=== PATIENT | female | born 1960 | race African-American/Black ===

== ENCOUNTER 2018-12-13 08:31 | Emergency (ER) | payer OTHER ==
[~2018-12-13] VITALS: Ht 177.8 cm; Wt 94.8 kg
[~2018-12-13 08:31] MED LIST: FLEXERIL PO; NORCO 7.5-3251 EACH PO
[2018-12-13] MEDS ORDERED: NORCO 5-325 TA1 EACH PO (09:54)
[2018-12-13 09:58] VITALS: BP 123/79
== END 2018-12-13 09:59 | disposition home or self-care (01) ==
LOC: ER 08:31
DX: S62.101A Fracture of unspecified carpal bone, right wrist, initial encounter for closed fracture (principal); S63.91XA Sprain of unspecified part of right wrist and hand, initial encounter; M54.9 Dorsalgia, unspecified; G89.29 Other chronic pain; D64.9 Anemia, unspecified; W19.XXXA Unspecified fall, initial encounter; Y93.01 Activity, walking, marching and hiking; Y92.89 Other specified places as the place of occurrence of the external cause; Y99.8 Other external cause status